=== PATIENT | female | born 1950 | race Caucasian/White ===

== ENCOUNTER 2024-09-30 12:26 | Emergency (ER) | payer OTHER, SELFPAY ==
[2024-09-30 12:35] VITALS: BP 118/81; PULSE 68; RESP 18; TEMP 37.1; O2SAT 97
--- NOTE | 2024-09-30 12:53 | ED_ITS ---
HPI - SOB/Dyspnea General Time Seen by Provider: 12:54 Date Seen: 09/30/24 Chief Complaint: Shortness of Breath/Dyspnea Stated Complaint: wheezing, shortness of breath Time Seen by Provider: 09/30/24 12:33 Source: patient and RN notes reviewed Mode of arrival: ambulatory Limitations: no limitations History of Present Illness HPI Narrative: This 73yo female is coming in with concern of shortness of breath in the setting of new diagnosis of congestive heart failure. 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 She is quite nervous about her symptoms now that she has found this out. She believes that she has been to couple of facilities in other states, couple of urgent cares and maybe an ED. at 1 of the facility she was started on losartan and spironolactone, probably in urgent care. She feels like the swelling in her legs is worse, feeling short of breath. She is not wearing any compression stockings. She is trying to eat healthy but the eat it truck stops, admits that she may be getting too much sodium. She does have a history of hypertension but had not been on any chronic medicines. She states that she was also diagnosed with a hiatal hernia, does sometimes get some sharp chest pain but she is unsure if it is what she ate her ate too much and it is possibly her hiatal hernia bothering her. Related Data Home Medications ?Medication ?Instructions ?Recorded ?Confirmed aspirin 325 mg tablet 325 mg PO DAILY 09/30/24 losartan 50 mg tablet 50 mg PO DAILY 09/30/2409/10 spironolactone 25 mg tablet 25 mg PO DAILY 09/30/24 Previous Rx's ?Medication ?Instructions ?Recorded losartan 50 mg tablet 50 mg PO DAILY #30 tabs 09/10 05/06 spironolactone 25 mg tablet 25 mg PO DAILY #30 tabs Allergies Allergy/AdvReac Type Severity Reaction Status Date / Time No Known Drug Allergies Allergy Verified 09/30/24 12:34 Review of Systems Status of ROS: Reports: 6 or more systems reviewed and unremarkable except as noted in History and below PFSH PFSH Social History Smoking Status: Never smoker Do you use any of these nicotine containing products: None Second hand tobacco smoke exposure: No How often do you have a drink containing alcohol: never AUDIT-C Alcohol total score: 0 Non-prescribed substance use: denies use Exam Const: Vital Signs, click to edit/add: Vital Signs - 24 hr 09/30/24 12:35 09/30/24 13:13 09/30/24 13:22 Temperature 98.8 F Pulse Rate 65 Pulse Rate [Pulse Oximeter] 68 Respiratory Rate 18 Blood Pressure [Ri ght Upper Arm] 118/81 Pulse Oximetry 97 97 99 Oxygen Delivery Me thod Room Air 09/30/24 13:30 09/30/24 13:45 Temperature Pulse Rate 64 63 Pulse Rate [Pulse Oximeter] Respiratory Rate Blood Pressure [Ri ght Upper Arm] Pulse Oximetry 97 98 Oxygen Delivery Me thod This 73yo female is seen in stab 2, is alert, interactive, no apparent distress but does seem mildly anxious. She is breathing on room air, able to speak in complete sentences. Face atraumatic. Neck is thick but do not necessarily appreciate any jugular venous distension, no neck masses. Lungs are clear, no wheezing or crackles, no accessory muscle use, no tachypnea, no prolonged expiratory phase. Abdomen is obese but soft, nontender, no palpable masses, certainly no rebound or guarding. Lower extremities are with normal skin, quite thick legs but no pitting edema. Patient baseline body habitus is obese. Documenting provider has reviewed patient's vital signs: yes Course Course ED Course: Patient is worried about heart failure. Will get her troponin and have her on cardiac monitoring, obtain EKG for the occasional sharp chest pain, doubt this represents coronary ischemia. Will obtain chest x-ray in full complement of labs. Clinically she is showing no definite evidence of decompensated heart failure on clinical exam. She does have obesity, does have thickened lower extremities but I do not appreciate pitting edema. Will see with the labs show. Will also do a D-dimer to make sure that is not elevated, may need to consider chest CT if elevated. Reevaluation(s) Time of Reevaluation #1: 15:07 Reevaluation #1: Patient has had no evidence of arrhythmia or hypoxia here. Her chest x-ray showing no congestive heart failure. There was a question of linear opacities but she states she is not sick, not having any concerning cough, no illness. We reviewed her labs are very reassuring, normal D-dimer, normal troponin. ProBNP is just slightly over 300, no evidence of any decompensated heart failure on her workup here. She does tell me that she needs refills of the spironolactone and the losartan, she only has 3 tablets of each left, did show me the pill bottles. I will give her a month's worth but have talked to her about the importance of getting established somewhere in primary care. I would not necessarily give her spironolactone as a first-line medication for heart failure but do not have all of her medical records, no prior history. She is not in any decompensated heart failure at this time and thus will agree to refill her medications. Vital Signs Vital signs: Initial Vital Signs Temperature 98.8 F 09/30/24 12:35 Temperature Source Temporal Artery Scan 09/30/24 12:35 Pulse Rate 68 09/30/24 12:35 Respiratory Rate 18 09/30/24 12:35 Blood Pressure 118/81 09/30/24 12:35 Blood Pressure Mean 93 09/30/24 12:35 Blood Pressure Position Sitting 09/30/24 12:35 Pulse Oximetry 97 09/30/24 12:35 Oxygen Delivery Method Room Air 09/30/24 12:35 Vital Signs Temperature 98.8 F 09/30/24 12:35 Pulse Rate 68 09/30/24 12:35 Respiratory Rate 18 09/30/24 12:35 Blood Pressure 118/81 09/30/24 12:35 Pulse Oximetry 97 09/30/24 12:35 Oxygen Delivery Method Room Air 09/30/24 12:35 Temperature 98.8 F 09/30/24 12:35 Pulse Rate 63 09/30/24 13:45 Respiratory Rate 18 09/30/24 12:35 Blood Pressure 118/81 09/30/24 12:35 Pulse Oximetry 98 09/30/24 13:45 Oxygen Delivery Method Room Air 09/30/24 12:35 MDM - SOB/Dyspnea Lab Data Attestation: I reviewed the patient's lab results. Labs: Lab Results 09/30/24 Range/Units 13:21 WBC 7.48 (4.50-11.00) K/uL RBC 4.02 (4.00-5.20) m/uL Hgb 13.7 (12.0-16.0) gm/dL Hct 41.0 (33.0-51.0) % MCV 102 H (80-100) fL MCH 34 (26-34) pg MCHC 33 (32-36) gm/dL RDW Coeff of Ced 12.6 (11.5-15.5) % Plt Count 253 (140-440) K/uL Neut % (Auto) 60.6 (42.0-72.0) % Lymph % (Auto) 22.9 (20-44) % Bibb % (Auto) 11.9 H (0.0-11.0) % Eos % (Auto) 4.0 (0.0-7.0) % Baso % (Auto) 0.3 (0.0-3.0) % Neut # (Auto) 4.54 (1.7-7.0) K/uL Lymph # (Auto) 1.71 (0.90-2.90) K/uL Bibb # (Auto) 0.90 (0.00-0.90) K/UL Eos # (Auto) 0.30 (0.00-0.50) K/uL Baso # (Auto) 0.02 (0.00-0.30) K/uL Abs Immat Gran (auto) 0.02 (0.00-0.30) K/uL Imm/Tot Granulo (auto) 0.3 % D-Dimer Quant (PE/DVT) 0.27 (0.00-0.50) ug/ml VBG pH 7.375 (7.32-7.43) VBG pCO2 43 (40-50) mmHG VBG pO2 36.7 (25-47) mmHG VBG HCO3 25 (21-28) mmol/L Sodium 137 (135-149) mmol/L Potassium 4.1 (3.6-5.1) mmol/L Chloride 108 (96-114) mmol/L Carbon Dioxide 24 (20-32) mmol/L Anion Gap 5 L (7-15) mEq/L BUN 15 (7-30) mg/dL Creatinine 0.8 (0.5-1.5) mg/dL Estimated GFR 78 ml/min Glucose 100 (60-115) mg/dL Calcium 9.4 (8.4-10.6) mg/dL Magnesium 1.8 (1.5-2.6) mg/dL Total Bilirubin 0.9 (0.1-1.5) mg/dL AST 32 (12-35) U/L ALT 24 (4-35) U/L Alkaline Phosphatase 63 (40-150) U/L Troponin I < 0.01 (0.01-0.04) ng/mL NT-Pro-B Natriuret Pep 331 H (See Note) pg/mL Total Protein 7.4 (6.0-8.3) g/dL Albumin 4.1 (3.3-5.0) g/dL Imaging Data Chest x-ray: Attestation: I have reviewed the pertinent imaging results. My impression: Is certainly do not appreciate any congestive heart failure on imaging, await Radiology over-read. Radiologist's impression: Patient: DENNISE COOPER Facility:?[facility] Patient ID:?[id number] Site Patient ID:?[id number]. Site :?[id number] Study:?XRay-Chest 1V-09/30/2024 1:28:36 PM Ordering Physician:Raysa Kwan Final Report: INDICATION: SOB, RECENT DX, CHF. TECHNIQUE: Chest 1 view. COMPARISON: None. FINDINGS: Unremarkable cardiomediastinal contours. Mild streaky left perihilar opacities. No sign of pleural effusion. No pneumothorax. No acute osseous or soft tissue findings. IMPRESSION: Mild streaky left perihilar opacities, which could reflect atelectasis, aspiration, or pneumonia. Dictated by West Valentine MD @ 09/30/2024 1:33:36 PM (Electronic Signature) ECG Data Attestation: I personally reviewed and interpreted this ECG as follows: (Normal sinus rhythm, 63 beats per minute. No evidence of any ischemia or infarct. Appears normal.) ECG interpretation date: 09/30/24 ECG interpretation time: 13:23 Prior ECG tracings: not available for review Discharge Plan Discharge Clinical Impression: History of CHF (congestive heart failure) Patient Disposition: Home, Self-Care Condition: Stable Instructions: Heart Failure (ED) Additional Instructions: I will refill he or medications for 1 month. You really do need to try to follow a heart healthy diet, decrease sodium intake in your diet. Walking as you are able to and weight loss will also help with congestive heart failure. There is no evidence of decompensated congestive heart failure with excessive fluid overload today. If you can, having ischial with you so that you can weigh yourself daily may be helpful. In order to do this we recommend a naked weight daily, not sure how you would be able to do this or if you can do this in the truck. Weight gain of more than 3-5 lb with concern for fluid overload should prompt you to seek re-evaluation. Activity Level: Activity as Tolerated Discharge Diet: Heart Healthy (2 gm sodium, low fat) Prescriptions: New spironolactone 25 mg tablet 25 mg PO DAILY Qty: 30 0RF losartan 50 mg tablet 50 mg PO DAILY Qty: 30 0RF No Action losartan 50 mg tablet 50 mg PO DAILY aspirin 325 mg tablet 325 mg PO DAILY spironolactone 25 mg tablet 25 mg PO DAILY Follow Up/Referrals: Provider,Not a Local [Primary Care Provider, Family Practice] Stand Alone Forms: [facility] Info Instructions Procedures ABG Interpretation ABG Results: 09/30/24 13:21 VBG pH 7.375 VBG pCO2 43 VBG pO2 36.7 VBG HCO3 25
--- NOTE | 2024-09-30 13:06 | CRLHL7_ITS ---
For Patients: As a result of the Cures Act, medical imaging exams and procedure reports are released immediately into your electronic medical record. You may view this report before your referring provider. If you have questions, please contact your health care provider. INDICATION: SOB, RECENT DX, CHF. TECHNIQUE: Chest 1 view. COMPARISON: None. FINDINGS: Unremarkable cardiomediastinal contours. Mild streaky left perihilar opacities. No sign of pleural effusion. No pneumothorax. No acute osseous or soft tissue findings. IMPRESSION: Mild streaky left perihilar opacities, which could reflect atelectasis, aspiration, or pneumonia. Dictated by West Valentine MD @ 09/30/2024 1:33:36 PM (Electronically Signed)
[2024-09-30 13:13] VITALS: O2SAT 97
[2024-09-30 13:22] VITALS: PULSE 65; O2SAT 99
[2024-09-30 13:28] LABS: HCO3 VBG 25 mmol/L (21-28); PCO2 VBG 43 mmHG (40-50); PO2 VBG 36.7 mmHG (25-47); pH VBG 7.375 (7.32-7.43)
[2024-09-30 13:30] VITALS: PULSE 64; O2SAT 97
[2024-09-30 13:31] LABS: Hematocrit 41.0 % (33.0-51.0); Hemoglobin* 13.7 gm/dL (12.0-16.0); Immature Granulocytes Abs Auto 0.02 K/uL (0.00-0.30); Immature Granulocytes Pct Auto 0.3 %; Lymphocytes Absolute Auto 1.71 K/uL (0.90-2.90); Mean Corpuscular HGB Conc 33 gm/dL (32-36); Mean Corpuscular Hemoglobin 34 pg (26-34); Mean Corpuscular Volume 102 fL (80-100); RDW Coefficient of Variation % 12.6 % (11.5-15.5); Red Blood Count 4.02 m/uL (4.00-5.20); White Blood Count* 7.48 K/uL (4.50-11.00)
[2024-09-30 13:36] LABS: Slide Review Reflex No
[2024-09-30 13:45] VITALS: PULSE 63; O2SAT 98
[2024-09-30 13:46] LABS: Albumin* 4.1 g/dL (3.3-5.0); Chloride* 108 mmol/L (96-114); Potassium* 4.1 mmol/L (3.6-5.1); Sodium* 137 mmol/L (135-149)
[2024-09-30 13:49] LABS: Alanine Aminotransferase* 24 U/L (4-35); Alkaline Phosphatase* 63 U/L (40-150); Anion Gap 5 mEq/L (7-15); Aspartate Amino Transferase* 32 U/L (12-35); Bilirubin Total* 0.9 mg/dL (0.1-1.5); Blood Urea Nitrogen* 15 mg/dL (7-30); Calcium* 9.4 mg/dL (8.4-10.6); Carbon Dioxide* 24 mmol/L (20-32); Creatinine* 0.8 mg/dL (0.5-1.5); Estimated Glomerular Filt Rate 78 ml/min; Glucose* 100 mg/dL (60-115); Total Protein* 7.4 g/dL (6.0-8.3)
--- OUTSIDE RECORDS SUMMARY | 2024-09-30 13:58 | XMS_ITS | Clinical Summary ---
Author Organization [facility] Address [address] [place] [address] Care Team Providers Care Shipping Checker Name Role Phone Pcp, No Primary Care Provider Unavailabl e Allergies No known active allergies Medications aspirin 325mg tablet Take 325 mg by mouth daily. Active clonazePAM (KLONOPIN) 0.5mg tablet Take 1 tablet (0.5 mg total) by mouth 2 (two) times a day as needed for anxiety for up to 8 doses. 8 tablet 7 Active HYDROcodone-ac etaminophen (generic for NORCO-5) 5-325mg per tablet Take 1 tablet by mouth every 8 (eight) hours as needed for moderate pain (Pain Scale 5-7) for up to 5 doses. 5 tablet 7 Active folic acid (generic for FOLVITE) 1mg tablet Take 1 tablet (1 mg total) by mouth daily. 30 tablet 7 Active nicotine (generic for NICODERM CQ) 21mg/24hr Place 1 patch on the skin daily. 30 patch 7 Active dicyclomine (BENTYL) 10mg capsule Take 2 capsules (20 mg total) by mouth 4 (four) times a day as needed (abdominal pain). 20 capsule 7 Active predniSONE 10 MG (21) tablet therapy pack Take 10 mg by mouth based on administration instructions. 21 each 0 Active methocarbamol (generic for ROBAXIN) 500mg tablet Take 1 tablet (500 mg total) by mouth 2 (two) times a day for 3 days. 6 tablet 2 Active albuterol HFA (PROVENTIL HFA;VENTOLIN HFA) 108 (90 BASE)mcg/act inhaler Inhale 2 puffs every 6 (six) hours as needed for wheezing or shortness of breath. 1 each 3 Active predniSONE 10 MG (21) tablet therapy pack Take 10 mg by mouth based on administration instructions. 21 each 3 Active hydrOXYzine (ATARAX) 25 MG tablet Take 1 tablet (25 mg total) by mouth every 6 (six) hours for 10 days. 12 tablet 4 Active metoprolol tartrate (generic for LOPRESSOR) 25mg tablet Take 1 tablet (25 mg total) by mouth 2 (two) times a day. 60 tablet 4 Active NIFEdipine XL (Procardia XL) 90mg 24hr tablet Take 1 tablet (90 mg total) by mouth daily. 30 tablet 4 Active thiamine 50 MG tablet Take 1 tablet (50 mg total) by mouth daily. 30 tablet 4 Active Active Problems Patient Care Coordination No te Formatting of this note migh t be different from the original. Leslie Medrano refused [facility]. Problem Noted Date Diagnosed Date Acute pyelonephritis 02/17/2017 Immunizations Immunization Administration Dates Next Due Influenza (IM) Preservative Free 02/23/2017 Social History Tobacco Use Types Packs/Day Years Used Date Smoking Tobacco: Never Passive Smoke Exposure: Yes Smokeless Tobacco: Never Tobacco Cessation:Counseling Given: Not Answered Alcohol Use Standard Drinks/Week Comments Yes 42 (1 standard drink = 0.6 oz pu re alcohol) daily AUDIT-C Answer Date Recorded Q1: How often do you have a drink containing alcohol? 4 or more times a week 07/09/2023 Q2: How many drinks containi ng alcohol do you have on a typical day when you are drinking? 3 or 4 4 Q3: How often do you have si x or more drinks on one occasion? Weekly 07/09/2023 Comments No Sex and Gender Information Value Date Recorded Sex Assigned at Female 03/19/2022 4:55 AM EST Legal Sex Female 4:02 PM EST Gender Identity Female 03/19/2022 4:55 AM EST Sexual Orientation Choose not to disclose 2022 4:55 AM EST Last Filed Vital Signs Vital Sign Reading Time Taken Comments Blood Pressure 175/74 07/10/2023 5:41 AM EDT Pulse 79 07/10/2023 5:41 AM EDT Temperature 36.4 C (97.6 F) 07/09/2023 10:57 PM EDT Respiratory Rate 16 07/10/2023 5:41 AM EDT Oxygen Saturation 97% 07/10/2023 5:41 AM EDT Inhaled Oxygen Concentration - - Weight 72.6 kg (160 lb) 07/09/2023 10:57 PM EDT Height 162.6 cm (5' 4) 07/09/2023 10:57 PM EDT Body Mass Index 27.46 07/09/2023 10:57 PM EDT Plan of Treatment Health Maintenance Due Date Last Done Comments Medicare Annual Wellness Visit 1950 Mammogram 1991 Colonoscopy 10/29/1996 Pneumococcal 50+ years (1 of 1 - PCV) 10/29/2001 DEXA Scan 10/29/2016 COVID-19 Vaccine ( season) 2023 Influenza Vaccine (#1) 2024 02/23/2017 Insurance [place]ID [place] FIRST CHOICE [facility] C[facility] PL[facility] FIRST CHOICE VIP CARE PLUS Advance Directives * Full Code (Latest Code Status on File) Date Activated Date Inactivated Comments 02/17/2017 3:12 PM 02/23/2017 2:49 PM Care Teams Shipping Checker Relationship Specialty Start Date End Date Pcp, Bharti PCP - General 08/31/16
[2024-09-30 14:02] LABS: D Dimer Quantitative* 0.27 ug/ml (0.00-0.50); NT Pro B Type NatriureticPept* 331 pg/mL (See Note)
== END 2024-09-30 15:42 | disposition home or self-care (01) ==
PROVIDERS: Emergency Provider Family Medicine
DX: R06.02 Shortness of breath (principal); Z86.79 Personal history of other diseases of the circulatory system
CPT/HCPCS: 36415; 71045; 80053; 82803; 83735; 83880; 84484; 85025; 85379; 86140; 93005; 94761; 99284